=== PATIENT | female | born 1945 | race Caucasian/White ===

== ENCOUNTER 2016-08-20 13:28 | Inpatient (IN) | payer MEDICARE, OTHER ==
[~2016-08-20] VITALS: Ht 160 cm; Wt 72.7 kg
[~2016-08-20 13:28] MED LIST: APIX5TAB PO; ASPI-628 PO; ATOR80TA PO; CALC600T12 PO; CARV6.25 PO; CHOL200020 PO; DABI150C PO; DETROL LA4 M1 PO; FLUT16SP2 NS; HYDR1TAB69 PO; KEN25CR EXT; LYSI500T PO; MULT-1007 PO; NITR0.4T6 SL; NITR4.1S TL; OLME40TA3 PO; RIVA20TA PO
[2016-08-20 13:37] VITALS: BP 115/70; PULSE 78; RESP 18; O2SAT 99
--- NOTE | 2016-08-20 15:19 | ED.REPORT ---
HPI-General Illness Date of Service Aug 20, 2016 ED Provider: Tommy Huang MD The patient is a 70 year old female with history of atrial fibrillation, previous stroke on Pradaxa, coronary artery disease, hypertension, and hyperlipidemia, who presents to the emergency department complaining of generalized weakness. The patient has had a cough since March. She has been seen at the urgent care multiple times since onset. She has also experienced decreased appetite, significant weight loss, intermittent fever, lower extremity swelling, chest pain secondary to coughing, shortness of breath, and fatigue. She was seen in the walk in clinic a few weeks ago for the same and was discharged home with cough medication and Ventolin. Her symptoms initially improved but have worsened over the last few days. She was sent to the emergency department today from urgent care for further evaluation. Nursing Notes Stated Complaint: WEAKNESS/LOSS OF APPETITE/COUGH/SENT FROM Chief Complaint: General Complaint Nursing Notes Reviewed: Yes Allergies: Coded Allergies: No Known Allergies (Verified , 08/20/16) Scheduled Apixaban (Eliquis) 5 Mg Tablet 5 MG PO BID Aspirin (Aspir 81) 81 Mg Tablet.dr 81 MG PO DAILY Atorvastatin (Lipitor) 80 Mg Tablet 80 MG PO DAILY Carvedilol (Coreg) 6.25 Mg Tablet 9.4 MG PO BID 1.5 tabs bid Dabigatran Etexilate Mesylate (Pradaxa) 150 Mg Capsule 150 MG PO BID Fluticasone Propionate (Flonase Nasal) 16 Gm Constable.susp 2 SPRAYS NS BID Hydrocodone Bit/Acetaminophen (Hydrocodon-Acetaminophen 5-500) 1 Each Tablet 1- 2 EACH PO Q6 Lysine (l-Lysine) 500 Mg Tablet 500 MG PO BID Olmesartan (Benicar) 40 Mg Tablet 20 MG PO DAILY Triamcinolone Acet (Triamcinolone Acetonide Cream) 1 Applic/0.25 Gm Cr 1 APPLIC EXT BID Miscellaneous Medications Calcium Carbonate (Calcium) 600 Mg Tablet 1,200 MG PO Cholecalciferol (Vitamin D3) (Vitamin D-3) 2,000 Unit Capsule 2,000 UNIT PO Multivitamin (Multi-Vitamin Daily) 1 Each Tablet 1 EACH PO Nitroglycerin (Nitromist) 4.1 Gm Constable 4.1 GM TL Nitroglycerin SL (Nitroglycerin SL) 0.4 Mg Tab.subl 0.4 MG SL Rivaroxaban (Xarelto) 20 Mg Tablet 20 MG PO Tolterodine Tartrate ER (Detrol LA) 4 Mg Cap.sr.24h 4 MG PO General Time Seen by MD: 15:18 Chief Complaint Weakness Hx Obtained From: Patient Arrived By: Walk-in Sudden in Onset?: No Onset Occurred: 1 week ago Symptom Duration: Since onset Severity: Current: No pain currently Severity: Maximum: No pain Recent Healthcare: No recent hospitalization, Recent doctor visit Similar Sx Previous: Yes Past Medical History Past Medical History Notes: [employer]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 Past Medical History Atrial fibrillation Hypertension Hyperlipidemia Coronary artery disease Pt reports history of a stroke 2-3 years ago with no deficits Past Surgical History Cardiac catheterization without stenting Family History Noncontributory Smoking History Never Smoker Social History Other Social History: Good social support, , Local resident Ambulatory Status Independent Review of Systems +decreased appetite Full Review of Systems Constitutional: Reports: Fatigue, Fever (intermittent subjective fever), Weakness - generalized Respiratory: Reports: Non-productive cough, Shortness of breath Cardiovascular: Reports: Chest pain (secondary to coughing) Musculoskeletal: Reports: Extremity swelling Complete sys rev & neg: except as marked. Physical Exam Vital Signs Vital Signs Date Time Temp Pulse Resp B/P Pulse Ox O2 Delivery O2 Flow Rate FiO2 08/20/16 16:44 127/59 116/67 105/58 08/20/16 13:37 36.8 78 18 115/70 99 Room Air Initial VS: Reviewed ENT: Mucous membranes moist, Conjunctiva normal, No scleral icterus Neck: Supple, Non-tender, Full range of motion Abdomen / GI: Soft, Non-tender, No guarding, No rebound, No distention Lymphatic: No lymphadenopathy Extremities: Vascular intact, Neuro intact Skin: Warm, Dry, No cyanosis Neurologic: Alert, Oriented, Nonfocal Psychiatric: Mood/affect normal, Behavior normal, Normal thought content General/Constitutional: Awake, Alert, Cooperative Respiratory / Chest: Atraumatic, Breath sounds = bilat, No respiratory distress , No rales, No rhonchi, No retractions, No stridor, No chest tenderness, No chest wall deformity, No crepitus End-expiratory wheezing Cardiovascular: Heart rate NL, Heart sounds NL Heart Rate / Rhythm: Positive: Irreg irregular rhythm Trace lower extremity edema Interpretation & Diagnostics Lab Results Interpretation Result Diagram: 08/20/16 1506 08/20/16 1506 Test 08/20/16 15:05 08/20/16 15:06 08/20/16 16:30 Pro-B-Type Natriuretic Peptide 822.8pg/mL (0-301) White Blood Count 5.2th/mm3 (3.8-10.1) Red Blood Count 4.52mil/mm3 (3.90-5.20) Hemoglobin 13.1g/dL (12.0-15.6) Hematocrit 39.8% (35.0-46.0) Mean Corpuscular Volume 88.1fL (81-100) Mean Corpuscular Hemoglobin 29.0pg (27.0-35.0) Mean Corpuscular Hemoglobin Concent 32.9% (32.0-37.0) Red Cell Distribution Width 15.4% (12.3-15.4) Platelet Count 244bil/L (150-400) Neutrophils (%) (Auto) 38.3% (40-74) Lymphocytes (%) (Auto) 44.5% (14-46) Monocytes (%) (Auto) 15.4% (4-12) Eosinophils (%) (Auto) 0.6% (0-5) Basophils (%) (Auto) 0.6% (0-3) Sodium Level 136mEq/L (134-144) Potassium Level 3.6mEq/L (3.5-5.2) Chloride Level 96mEq/L (97-108) Carbon Dioxide Level 19mmol/L (18-29) Blood Urea Nitrogen 20mg/dL (8-27) Creatinine 0.86mg/dL (0.57-1.00) Estimat Glomerular Filtration Rate 94mL/min (>59) Glucose Level 85mg/dL (60-99) Calcium Level 9.1mg/dL (8.5-10.1) Magnesium Level 1.9mg/dL (1.6-2.6) Total Bilirubin 0.8mg/dL (0.0-1.2) Aspartate Amino Transf (AST/SGOT) 35U/L (0-50) Alanine Aminotransferase (ALT/SGPT) 18U/L (0-32) Alkaline Phosphatase 70U/L (25-165) Total Protein 6.9g/dL (6.4-8.4) Albumin 3.6g/dL (3.4-5.0) Lipase 19U/L (13-60) Urine Color Dark yellow (YELLOW) Urine Appearance Slightly cloudy Urine pH 5.0 (5.0-8.0) Urine Specific Spring 1.032 (1.003-1.035) Urine Protein 100mg/dL (NEG,TRACE) Urine Glucose (UA) Negativemg/dL (NEGATIVE) Urine Ketones >80mg/dL (NEGATIVE) Urine Occult Blood Negative (NEGATIVE) Urine Nitrite Negative (NEGATIVE) Urine Bilirubin Negative (NEGATIVE) Urine Urobilinogen Normalmg/dL (NORMAL) Urine Leukocyte Esterase Negative (NEGATIVE) Urine RBC 0-2/hpf (0-2) Urine WBC 0-5/hpf (0-5) Urine Epithelial Cells Many/hpf (NONE-MOD) Urine Crystals Oxalic acid crystals (NONE Urine Bacteria Few/hpf (NONE-FEW) Urine Hyaline Casts Occasional/lpf (NONE) Urine Granular Casts None seen (NONE SEEN) Urine Waxy Casts None seen (NONE SEEN) Urine Red Blood Cell Casts None seen (NONE SEEN) Urine White Blood Cell Casts None seen (NONE SEEN) Urine Mucus Present (None Seen) Urine Trichomonas None seen (NONE SEEN) Urine Yeast None (NONE SEEN) Urinalysis Comment None Urine Culture Reflexed Not indicated ECG Interpretation ECG Interpretation: Atrial fibrillation with a rate of 85 Time: 15:51 Interpreted by: ED physician X-Ray Chest Interpretation Chest Xray Interpretation: Normal AP chest. View: Portable, 1 view Interpretation / Wet Read by: Wet read ED physician Re-Eval/Medical Decision Source of Hx: Old records Time of Eval: 17:11 Re-Evaluation/Progress Note: Rechecked the patient. Discussed results, diagnosis, and options for disposition. The patient is agreeable to admission. All questions were addressed. Consultation : Referral / Consult Name: Loyda Amato MD Consulted With: Hospitalist Requested Call at: 17:14 Call Returned at: 17:56 Physical Fitness Teacher: Will see patient, Agrees with eval, Agrees with plan, Accepts admit Counseled Regarding: Diagnosis, Lab results, Need for admission Discharge & Departure Primary Impression: Congestive heart failure Congestive heart failure type: unspecified congestive heart failure type Congestive heart failure chronicity: unspecified congestive heart failure chronicity Qualified Code: I50.9 - Heart failure, unspecified Disposition: ADMITTED TO HOSPITAL Discharge Condition All VS Reviewed: Yes Condition: Stable Referrals: Palak Landa (PCP) Alexandria Dimas MD Attestation Portions of this note were transcribed by Roseann Carcamo. I, Dr. Huang personally performed the history, physical exam and medical decision-making; I reviewed and confirmed the accuracy of the information in the transcribed note. Signed by: Tayler Perze, 08/20/2016 at 1800. copies to: Palak Landa; Alexandria Dimas MD, Kirk H MD Aug 20, 2016 15:19 Roseann Carcamo Aug 20, 2016 15:26
[2016-08-20 15:24] LABS: BASOPHILS % (AUTO) 0.6 % (0-3); EOSINOPHILS % (AUTO) 0.6 % (0-5); MONOCYTES % (AUTO) 15.4 % (4-12); Mean Corpuscular Volume 88.1 fL (81-100); NEUTROPHILS % (AUTO) 38.3 % (40-74); Platelet Count 244 bil/L (150-400)
[2016-08-20 16:05] LABS: Magnesium 1.9 mg/dL (1.6-2.6)
[2016-08-20 16:44] VITALS: BP_SYST 105; BP_SYST 116; BP_SYST 127; BP_DIAS 58; BP_DIAS 59; BP_DIAS 67
[2016-08-20 17:16] LABS: APPEARANCE,URINE SLIGHTLY CLOUDY (CLEAR,HAZY); COLOR,URINE DARK YELLOW (YELLOW); OCCULT BLOOD,URINE NEGATIVE (NEGATIVE)
[2016-08-20 17:17] LABS: UROBILINOGEN,URINE NORMAL (NORMAL)
[2016-08-20 17:36] VITALS: BP 116/53; PULSE 82; RESP 21; O2SAT 98
--- NOTE | 2016-08-20 18:27 | NUR ---
Admission Pt arrived on [facility] to Rm [id number], No complains of increased pain, weakness or SOB, A/Ox3, IV SL, Oriented to call light, visiting hours and BR. Addendum: 08/20/16 at 1845 by SUNG PINA RN Pt has no IV access, sts was told in ED "She was not going to have to have an IV".
[2016-08-20] MEDS ORDERED: Alum-Mag Hydrox-Simeth 30 mL Suspension PO PRN (18:30)
[2016-08-20] MEDS ORDERED: Polyethylene Glycol (PEG) 17 Gm Powder PO PRN (18:30)
[2016-08-20] MEDS ORDERED: Ondansetron 2 mg/mL 2 mL Inj IVPUSH PRN (18:30)
[2016-08-20 18:41] VITALS: BP 128/88; PULSE 69; RESP 20; O2SAT 95
[2016-08-20 18:56] VITALS: PULSE 92
--- NOTE | 2016-08-20 19:26 | HP ---
[address] [address] HISTORY AND PHYSICAL PATIENT: MEGHANN ANGELA : 1945 MR#: [id number] ADMIT: 08/20/2016 JOB ID: [id number] PRIMARY CARE PROVIDER: To be Palak Landa. Has an appointment in the next week or two. VALET SERVICE ATTENDANT: Dr. Dimas. The patient admitted from ED, observational status, Blue Team. CHIEF COMPLAINT: Cough and congestion and lightheadedness for 10 days. HISTORY OF PRESENT ILLNESS: This is a 70-year-old female who presents to the ED because she has been sick for several days. She has had no energy. She has had a cough with clear sputum, a sore throat. She has had some nasal congestion. When she lies down, she coughs but denies any PND. She has been a little bit wheezy. Presents to the ED with this and ED physician asked me to admit patient because he is worried about heart failure and the patient is a little bit hypotensive and orthostatic. Patient has had a cough for several months since April, nonproductive. Patient went on an airplane trip to [place], spent about a week there, came back about 10 days ago with pretty significant edema. However, that has pretty much cleared up over the last eight days. She has not been eating or drinking too much. Two weeks ago, patient went to urgent care. They gave her some inhalers, cough suppressants. The cough suppressant helped a bit. The inhaler did not do much. Patient has no history of congestive heart failure but has a history of AFib. No diarrhea, no chest pain. No nausea, vomiting. COMPLETE REVIEW OF SYSTEMS: Obtained. All pertinent positive positives in HPI above. Rest review of systems is negative. PAST MEDICAL HISTORY: 1. AFib. Diagnosed 2004. 2. Stroke 2004. 3. Hypertension. 4. Carotid stenosis. 5. Urge incontinence. MEDICATIONS: 1. Aspirin 81 mg daily. 2. Benicar 20 mg daily. 3. Coreg 6.25 b.i.d. 4. Detrol LA 4 daily. 5. Fluticasone nasal spray. 6. L-lycine. 7. Lipitor 80 daily. 8. Multivitamins daily. 9. P.r.n. sublingual nitro. 10. Pradaxa 150 b.i.d. 11. Vitamin D3 2000 units daily. ALLERGIES: None known. SOCIAL HISTORY: Patient lives with her . Does not smoke. Consumes no alcohol. FAMILY HISTORY: Father of a myocardial infarction and her mother had diabetes and other members in her family had diabetes. PHYSICAL EXAMINATION: Afebrile, pulse 82, respiratory rate 21, O2 sats 98% on room air. Lying, patient's blood pressure was 127/59, dropped to 105/58. Standing, pulse went from 81 down to 74. Patient coughing a little bit. A little bit wheezy in the room. Skin is warm and dry. Eyes: PERRLA. EOMs intact. Mouth shows adequate hydration. No JVD. Cardiac is regular. Lungs have some scattered expiratory wheezes. No rales. Cardiac is regular. Soft systolic murmur. No gallop. Abdomen is soft, nonacute, benign. Lower extremities showed no pitting edema. Cranial nerves 2-12 are intact. No gross motor or sensory defects noted. DIAGNOSES: 1. Probable upper respiratory infection present on admission. Active. Will send a viral PCR. 2. Possible congestive heart failure, present on admission. Active. Patient will get an echocardiogram. While patient may have congestive heart failure, I think she is a bit on the dry side so obviously will not start diuretics at this time. Will be changing her HECTOR to an ARB due to cough. Depending on those results, make further management plans. 3. Possible mild dehydration present on admission. Active. NS at 100 cc an hour. 4. Possible pulmonary embolus, present on admission. Active. Patient had an airplane flight. Came back with edema. CTA will be obtained. That will also give us some information about her lung tissue, etc. Obviously, if positive, patient needs to be put on heparin and treated. However, seems unlikely in that she is on Pradaxa. 5. AFib, present on admission. Stable. Continue patient's Pradaxa, rate controlled with Coreg. 6. History of CVA. Present on admission. Stable. Continue Lipitor and Coreg. 7. Hypertension. Present on admission. Stable. Will switch patient's Benicar to Cozaar because patient has had a cough since April and that may be helpful. Other workup as above. 8. Urge incontinence. Continue Detrol. CODE STATUS: FULL CODE.
[2016-08-20] MEDS ORDERED: OLME40TA3 PO (19:34)
[2016-08-20] MEDS ORDERED: ASPI81TA3 PO (19:35)
[2016-08-20] MEDS ORDERED: CHOL10008 PO (19:37)
[2016-08-20] MEDS ORDERED: MULT1CAP33 PO (19:37)
--- NOTE | 2016-08-20 19:39 | NUR ---
med rec reviewed med rec with patient, family, and medication bottles.
--- NOTE | 2016-08-20 20:35 | NUR ---
LISE explained and signed, copy of LISE and Medicare self administered medication information given to pt.
[2016-08-20 20:44] VITALS: BP 120/71; PULSE 87; RESP 20; O2SAT 97
[2016-08-20] MEDS: 0.9% Sodium Chloride 1,000 ML IV SCH (20:52)
--- NOTE | 2016-08-20 21:17 | NUR ---
anxiety patient is very anxious about medical care explained all interventions. answered questions care ongoing.
[2016-08-20] MEDS: Dabigatran 150 mg Capsule PO SCH (21:18)
[2016-08-21] VITALS (7 sets, daily range): BP systolic 120–153; BP diastolic 52–88; PULSE 67–98; RESP 18–20; O2SAT 92–95
--- NOTE | 2016-08-21 00:04 | NUR ---
iv access for ct scan patient very anxious about iv starts. asked gabriel rn to assess iv access (antecubital required per ct scan) failed attempt x1. ct scan ordered routine per electoral officer left mssg with iv therapy for access start at 06am. explained to patient. care ongoing.
[2016-08-21] MEDS: 0.9% Sodium Chloride 1,000 ML IV SCH (05:39)
--- NOTE | 2016-08-21 06:00 | DRSVH ---
PROCEDURE: X-RAY CHEST ONE VIEW, PORTABLE ([id number]) INDICATIONS: cough TECHNIQUE: One view of the chest was acquired. COMPARISON: None. FINDINGS: Surgical changes and devices: None. Lungs and pleura: No pleural effusions or pneumothorax. Lungs are clear. Mediastinum: Mediastinal contours appear normal. Heart size is normal. Bones and chest wall: No suspicious bony lesions. Overlying soft tissues appear unremarkable. IMPRESSION: No acute abnormality. Dictated by: Justino Feldman M.D. on 08/20/2016 at 16:02 Approved by: Justino Feldman M.D. on 08/20/2016 at 16:03
[2016-08-21] MEDS: Tolterodine ER 4 mg ER24 Capsule PO SCH (08:33)
[2016-08-21] MEDS: Dabigatran 150 mg Capsule PO SCH ×2 (08:36→22:31)
--- NOTE | 2016-08-21 10:58 | DRSVH ---
PROCEDURE: CT ANGIO CHEST PULMONARY EMBOLISM ([id number]) INDICATIONS: sob edema cough TECHNIQUE: After the administration of intravenous contrast, 2 mm thick sections acquired from the pulmonary api erik to the posterior costophrenic angles. 3-dimensional maximum intensity projection (MIP) coronal a nd sagittal reformats were then acquired through the thorax. For radiation dose reduction, the follo wing was used: automated exposure control, adjustment of mA and/or kV according to patient size. COMPARISON: None. FINDINGS: Image quality: Excellent. Pulmonary arteries: Pulmonary arteries are normal in size, and demonstrate no intraluminal filling d efects to suggest central pulmonary embolism. Lungs and pleura: Lungs are clear. No pleural effusions or pneumothorax. Central and peripheral ai rways are patent. Mild increased pulmonary vascularity. Mediastinum: Heart size is minimally prominent with a minimal pericardial effusion. There are mildly enlarged mediastinal lymph nodes with a 14 mm anterior right paratracheal and 15 mm subcarinal lymph nodes identified. There are mildly enlarged hilar lymph nodes, measuring 14 mm in the left perihilar region. Thoracic aorta is normal in caliber and enhancement. Esophagus is normal in caliber, with m ild hiatal hernia. 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 Bones and chest wall: No suspicious bony lesions. Ribs and thoracic spine appear intact throughout. Thyroid gland is unremarkable. No axillary or supraclavicular adenopathy. Abdomen: Visualized upper abdominal solid organs appear normal in the early arterial phase of enhanc ement. IMPRESSION: 1. No evidence of pulmonary embolism. 2. Lungs are clear. 3. Mild cardiomegaly with trace pericardial effusion and increased pulmonary vascularity. Findings a re suggestive of CHF. 4. Mildly enlarged mediastinal and hilar lymph nodes. This is nonspecific. It could be related to in fection/inflammation. Dictated by: Lisa Weber M.D. on 08/21/2016 at 10:48 Approved by: Lisa Weber M.D. on 08/21/2016 at 10:57
[2016-08-21] MEDS ORDERED: MULT-1018 PO (11:34)
--- NOTE | 2016-08-21 14:07 | DRSVH ---
[facility] [address] [place] [address] Echocardiogram Report Name: MEGHANN ANGELA Study Date: 08/21/2016 Height: 63 in Hospital Exam Location: [facility] Weight: 163 lb Gender: Female BSA: 1.8 m2 : 1945 Age: 70 yrs BP: 153/88 mmHg Reason For Study: SOB, EDEMA Ordering Physician: HOSPITALIST ASHLEYHPerformed By: Fer Flores Referring Physician: Loyda DYER Interpretation Summary 1) Normal left ventricular thickness, size, wall motion, and systolic function (EF 55-60%). 2) Normal right ventricular size with borderline reduced systolic function. 3) No significant valvular disease. 4) Systolic pulmonary pressure estimated at 35mmHg. 5) Atrial fibrillation with controlled ventricular rate present during the study. 6) Compared to the Echo done 07/21/2012, pulmonary systolic pressure has decreased from about 50mmHg to 35mmHg on today's study. Procedure: A two-dimensional transthoracic echocardiogram with color flow and Doppler was performed. The study quality was technically good. Comparison is made with the echocardiogram of 07/21/12. The patient was in atrial fibrillation with controlled ventricular rate during the exam. Left Ventricle: The left ventricle is normal in size. There is normal left ventricular wall thickness. Left ventricular systolic function is normal without focal wall motion abnormalities. The ejection fraction is estimated to be 55-60%. Assessment of diastolic parameters indicates a relaxation abnormality of the left ventricle, consistent with normal filling pressures. Right Ventricle: The right ventricle is normal size. Right ventricular systolic function is borderline reduced. Atria: The left atrium is mildly dilated. The right atrium is mildly dilated. The interatrial septum is intact with no evidence for an atrial septal defect. Mitral Valve: The mitral valve is normal. There is mild mitral regurgitation. Aortic Valve: The aortic valve is normal in structure and function. There is no aortic valve stenosis. There is trace aortic regurgitation. Tricuspid Valve: The tricuspid valve is normal. There is mild tricuspid regurgitation. The right ventricular systolic pressure is estimated at 35 mmHg assuming a right atrial pressure of 3 mm Hg. Pulmonic Valve: The pulmonic valve leaflets are thin and pliable; valve motion is normal. There is a trace or physiologic amount of pulmonic regurgitation. Great Vessels: The aortic root is normal size. The dimensions of the ascending aorta are normal. The pulmonary artery is normal size. The IVC is of normal diameter and collapses greater than 50% with a sniff. This suggests a low right atrial pressure of 3 mm Hg. Pericardium/ Pleura There is no pericardial effusion. There is no pleural effusion. MMode/2D Measurements & Calculations LVIDd: 4.8 cm RA long axis LVOT diam: 2.0 cm LVIDs: 3.4 cm LA A2 area: 19.3 cm AoV Opening FS: 27.7 % LA A4 area: 20.8 cm RA area EPSS: 0.36 cm LA length (vol) Ao root diam IVSd: 1.1 cm : 19.9 cm LVPWd: 0.99 cm LA vol: 56.8 ml RA vol asc Aorta Diam LA vol index : 61.9 ml RA Ao Arch Diam (Prox : 34.9 mm2 Trans): 2.7 cm IVC diam: 1.9 cm LV selby. diameter/BSA LV sys. diameter/BSA RVD1 (basal) RVD2 (mid): 2.7 cm (cm/m^2): 2.7 (cm/m^2): 1.9 TAPSE: 1.3 cm Doppler Measurements & Calculations Ao V2 max MV E max dominik Med Peak E' Dominik TR max dominik : 165.9 cm/sec : 119.6 cm/sec : 282.9 cm/sec Ao max PG E/E' med: 15.9 TR max P.2 mmHg : 11.0 mmHg Lat Peak E' Dominik PA V2 max: 57.7 cm/sec Ao mean PG PA mean P.69 mmHg E/E' lat: 9.6 LVOT Max Dominik E/e' average : 98.7 cm/sec Pulm A Revs Dur MÓNICA(I,D): 2.0 cm sev ratio Ao V2 mean LV V1 max PG PA V2 mean MÓNICA indexed to BSA : 108.3 cm/sec : 38.9 cm/sec (cm^2/m^2): 1.1 Ao V2 VTI LV V1 VTI: 19.0 cmPA pr(Accel) : 26.1 mmHg MÓNICA(V,D): 1.8 cm2 Reading Physician:02:05 PM
--- NOTE | 2016-08-21 14:42 | NUR ---
Social Work-initial assessment: Data:See initial assessment. Pt is a 70 y/o female who was admitted on 08/20/16 for CHF per H&P. Pt's insurance is [employer] and PCP is Palak ZAYAS. EMR Reviewed. Pt's readmission score is 3-high risk. SW met with pt at bedside to discuss discharge planning, SW role explained. Pt is alert and oriented x3. Pt resides at home with spouse in a single level home with 3 steps to enter where pt remains independent with basic ADLs. Pt uses no DME and drives POV. Pt has no HH or SNF history. Pt states she has completed DPOA/ advanced directive and will provide a copy to the hospital when she returns home. 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 CT scan is pending. Pt's family to provide transport home at discharge. SW provided phone number and plan on white board in room. SW will continue to follow. Assessment:Pt who resides at home and is independent at baseline. Plan:Pt to likely discharge home via POV with no needs. SW will continue to follow. TORIN Cadena Addendum: 08/21/16 at 1445 by KANU JANG SS Amended: Links added.
--- NOTE | 2016-08-21 15:05 | NUR ---
Case Management: [facility] delivered and explained to patient. Signed original placed in chart. Copy left at bedside. Roxana Altman RN
--- NOTE | 2016-08-21 19:38 | NUR ---
HR Pt had 2 episodes of tachycardia. In AM when getting new IV access - HR went into 130-160's as pt was in pain and very nervous about needles. No other sx of distress, HR resolved back to normal. Later around 6pm Tele reported having another tachycardic event. Up to 140-170's. Pt asymptomatic, was up to bathroom. MD paged, called back, and new orders placed. NOC shift updated with status.
[2016-08-21] MEDS: Potassium Chloride 20 mEq SR Tablet PO SCH (19:51)
--- NOTE | 2016-08-21 23:46 | PCM.PNMED ---
Subjective Date of Service Aug 21, 2016 Subjective The patient is feeling better and is less short of breath with less cough. Exam Vital Signs Vital Sign - Last Date Time Temp Pulse Resp B/P Pulse Ox O2 Delivery O2 Flow Rate FiO2 08/21/16 22:33 37.1 71 18 135/52 94 Room Air Intake and Output 08/20/16 08/20/16 08/21/16 Cumulative From/Thru 15:00 23:00 07:00 08/20/16 13:37 - 08/21/16 06:49 Intake Total 977 ml 977 ml Output Total 1100 ml 1100 ml Balance -123 ml -123 ml Intake Oral 500 ml 500 ml IV Total 477 ml 477 ml Output Urine Total 1100 ml 1100 ml # Bowel Movements 0 0 Exam General: The patient is lying supine in bed in no apparent distress. HEENT: Head is atraumatic and normocephalic. Eyes: Pupils are equally round and reactive to light and accommodation. Extraocular muscles are intact. Sclera are white, anicteric. Subconjunctival mucosa is pink. Ears and nose are unremarkable. Oropharynx: There is no mucosal lesions, there is no thrush, there is no pharyngitis. Neck: Is supple, there are no nodes, or masses or tenderness. Chest: Is clear to auscultation and percussion. There are no rales, rhonchi, wheezes or rubs. Heart: Rate, rhythm is regular. There is a grade 1/6 systolic ejection murmur heard best at the left sternal border. Abdomen: Good bowel sounds are present. Abdomen is soft, nontender, no organomegaly or masses were appreciated. Extremities: Are symmetrical and well perfused. There is minimal edema, there is no cellulitis, no rash. Neurologic: There are no focal neurological deficits. Cranial nerves II through XII are intact. There are no sensory or motor deficits. Psychiatric: Patients mood is calm and shows no sign of agitation. Genital: Deferred Rectal: Deferred Lab and Diagnostics Result Diagram: 08/20/16 1506 08/20/16 1506 Microbiology INFLUENZA A PCR Final 08/21/16-14 Organism 1 INFLUENZA A H3 INFLUENZA A PCR DETECTED TIME CALLED: 812 DATE CALLED: 08/21/16 FLOOR/DOCTOR: NEWTON/KAHLIL Mireles CALLED BY: HORTENCIA X-Rays, CTs and MRIs PROCEDURE: CT ANGIO CHEST PULMONARY EMBOLISM ([id number]) INDICATIONS: sob edema cough TECHNIQUE: After the administration of intravenous contrast, 2 mm thick sections acquired from the pulmonary apices to the posterior costophrenic angles. 3-dimensional maximum intensity projection (MIP) coronal and sagittal reformats were then acquired through the thorax. For radiation dose reduction, the following was used: automated exposure control, adjustment of mA and/or kV according to patient size. COMPARISON: None. FINDINGS: Image quality: Excellent. Pulmonary arteries: Pulmonary arteries are normal in size, and demonstrate no intraluminal filling defects to suggest central pulmonary embolism. Lungs and pleura: Lungs are clear. No pleural effusions or pneumothorax. Central and peripheral airways are patent. Mild increased pulmonary vascularity. Mediastinum: Heart size is minimally prominent with a minimal pericardial effusion. There are mildly enlarged mediastinal lymph nodes with a 14 mm anterior right paratracheal and 15 mm subcarinal lymph nodes identified. There are mildly enlarged hilar lymph nodes, measuring 14 mm in the left perihilar region. Thoracic aorta is normal in caliber and enhancement. Esophagus is normal in caliber, with mild hiatal hernia. 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 Bones and chest wall: No suspicious bony lesions. Ribs and thoracic spine appear intact throughout. Thyroid gland is unremarkable. No axillary or supraclavicular adenopathy. Abdomen: Visualized upper abdominal solid organs appear normal in the early arterial phase of enhancement. IMPRESSION: 1. No evidence of pulmonary embolism. 2. Lungs are clear. 3. Mild cardiomegaly with trace pericardial effusion and increased pulmonary vascularity. Findings are suggestive of CHF. 4. Mildly enlarged mediastinal and hilar lymph nodes. This is nonspecific. It could be related to infection/inflammation. Dictated by: Lisa Weber M.D. on 08/21/2016 at 10:48 Approved by: Lisa Weber M.D. on 08/21/2016 at 10:57 PROCEDURE: X-RAY CHEST ONE VIEW, PORTABLE ([id number]) INDICATIONS: cough TECHNIQUE: One view of the chest was acquired. COMPARISON: None. FINDINGS: Surgical changes and devices: None. Lungs and pleura: No pleural effusions or pneumothorax. Lungs are clear. Mediastinum: Mediastinal contours appear normal. Heart size is normal. Bones and chest wall: No suspicious bony lesions. Overlying soft tissues appear unremarkable. IMPRESSION: No acute abnormality. Dictated by: Justino Feldman M.D. on 08/20/2016 at 16:02 Approved by: Justino Feldman M.D. on 08/20/2016 at 16:03 Cardiac Echo Impressions Echocardiogram Report Name: MEGHANN ANGELA Study Date: 08/21/2016 Height: 63 in Hospital Exam Location: [facility] [place] Weight: 163 lb Gender: Female BSA: 1.8 m2 : 1945 Age: 70 yrs BP: 153/88 mmHg Reason For Study: SOB, EDEMA Ordering Physician: HOSPITALIST ASHLEYerformed By: Fer Flores Referring Physician: Loyda DYER Interpretation Summary 1) Normal left ventricular thickness, size, wall motion, and systolic function (EF 55-60%). 2) Normal right ventricular size with borderline reduced systolic function. 3) No significant valvular disease. 4) Systolic pulmonary pressure estimated at 35mmHg. 5) Atrial fibrillation with controlled ventricular rate present during the study. 6) Compared to the Echo done 07/21/2012, pulmonary systolic pressure has decreased from about 50mmHg to 35mmHg on today's study. Assessment & Plan This is a 70-year-old female who presents to the ED because she has been sick for several days. She has had no energy. She has had a cough with clear sputum , a sore throat. She has had some nasal congestion. When she lies down, she coughs but denies any PND. She has been a little bit wheezy. Presents to the ED with this and ED physician asked the hospitalist service to admit this patient because he was worried about heart failure and the patient was a little bit hypotensive and orthostatic. The patient was therefore admitted to the hospital service. # Influenza A - Will start Tamiflu, dosing per pharmacy. - Isolation - Acute on chronic diastolic Congestive heart failure, present on admission. Active. - This was confirmed by CT scanning and BNP measurement and clinical presentation. - Lisinopril changed to losartan and will continue with losartan. - We will discontinue IV fluids at this time - As patient appears to have periodic runs of supraventricular tachycardia, with heart rate is up to 170, due to her atrial fibrillation with rapid ventricular response, we will increase her carvedilol to 12.5 mg by mouth twice a day - We will add Lasix - We will add potassium as needed - We will monitor fluids and electrolytes and replace as needed. # Mild dehydration present on admission. Active. NS at 100 cc an hour was started. - However, due to the congestive heart failure this is now been discontinued # AFib, with paroxysmal rapid ventricular response usually brought on by activity and/or stress. -We will continue rate control with the use of carvedilol. However we will double the dose to 12.5 mg by mouth twice a day and see how the patient tolerates it. - Continue patient's Pradaxa. # History of CVA. Present on admission. Stable. - Continue Lipitor and Coreg. - Continue Pradaxa # Hypertension. Present on admission. Improved - Benicar has been switched to Cozaar because patient has had a cough since April and that may be helpful. - Other workup as above. # Urge incontinence. - Continue Detrol. Disposition: The patient will be here another 24-48 hours for further evaluation and treatment of the above problems. Pain Evaluation: Adequate Pain Control VTE Prophylaxis: Other (The patient is on Pradaxa.) Resuscitation Status: CPR: Attempt Resuscitation Jose Alejandro Rojo MD Aug 21, 2016 23:46
[2016-08-22] VITALS (9 sets, daily range): BP systolic 105–151; BP diastolic 67–81; PULSE 64–95; RESP 18–20; O2SAT 92–97
[2016-08-22 06:18] LABS: BASOPHILS % (AUTO) 0.8 % (0-3); EOSINOPHILS % (AUTO) 1.1 % (0-5); MONOCYTES % (AUTO) 15.9 % (4-12); Mean Corpuscular Hemoglobin 28.5 pg (27.0-35.0); Mean Corpuscular Volume 86.7 fL (81-100); NEUTROPHILS % (AUTO) 26.7 % (40-74); Platelet Count 219 bil/L (150-400)
--- NOTE | 2016-08-22 06:22 | NUR ---
HR/respiratory Extra dose of Coreg given in the beginning of shift per order. Pt's HR is running around 80s, went up to 140s when ambulating to the BR but went back down to 80s when back in bed. denies any chest pain or discomfort. Pt reported breathing much better tonight. able to ambulate to the BR independently w/o dizziness or SOB. had some coughing fit. pt is able to sleep intermittently.
[2016-08-22] MEDS: Potassium Chloride 20 mEq SR Tablet PO SCH ×2 (08:18→17:53)
[2016-08-22] MEDS: Tolterodine ER 4 mg ER24 Capsule PO SCH (08:19)
[2016-08-22] MEDS: Dabigatran 150 mg Capsule PO SCH ×2 (12:18→20:03)
--- NOTE | 2016-08-22 22:46 | PCM.PNMED ---
Subjective Date of Service Aug 22, 2016 Subjective Patient had a heart rate of 170 yesterday afternoon and was asymptomatic during this episode. Another episode where her heart rate went to 150-160 and she was asymptomatic during this episode. Patient has no other new complaints and is beginning to feel little bit better. Her cough has improved but is still present. Patient has no palpitations. Patient has no chest pain. Exam Vital Signs Vital Sign - Last Date Time Temp Pulse Resp B/P Pulse Ox O2 Delivery O2 Flow Rate FiO2 08/22/16 20:15 37.2 64 20 119/73 94 Room Air Intake and Output 08/21/16 08/21/16 08/22/16 Cumulative From/Thru 15:00 23:00 07:00 08/20/16 13:37 - 08/22/16 05:13 Intake Total 850 ml 740 ml 200 ml 2767 ml Output Total 1200 ml 600 ml 2900 ml Balance 850 ml -460 ml -400 ml -133 ml Intake Oral 740 ml 200 ml 1440 ml IV Total 850 ml 1327 ml Output Urine Total 1200 ml 600 ml 2900 ml # Bowel Movements 1 0 1 Exam General: The patient is lying supine in bed in no apparent distress. HEENT: Head is atraumatic and normocephalic. Eyes: Pupils are equally round and reactive to light and accommodation. Extraocular muscles are intact. Sclera are white, anicteric. Subconjunctival mucosa is pink. Ears and nose are unremarkable. Oropharynx: There is no mucosal lesions, there is no thrush, there is no pharyngitis. Neck: Is supple, there are no nodes, or masses or tenderness. Chest: Is clearer to auscultation and percussion. There are no rales, rhonchi, wheezes or rubs. Heart: Rate, rhythm is regular. There is a grade 1/6 systolic ejection murmur heard best at the left sternal border. Abdomen: Good bowel sounds are present. Abdomen is soft, nontender, no organomegaly or masses were appreciated. Extremities: Are symmetrical and well perfused. There is minimal edema, there is no cellulitis, no rash. Neurologic: There are no focal neurological deficits. Cranial nerves II through XII are intact. There are no sensory or motor deficits. Psychiatric: Patients mood is calm and shows no sign of agitation. Genital: Deferred Rectal: Deferred Lab and Diagnostics Result Diagram: 08/22/16 0525 08/22/16 0525 Microbiology INFLUENZA A PCR Final 08/21/16-0814 Organism 1 INFLUENZA A H3 INFLUENZA A PCR DETECTED TIME CALLED: 812 DATE CALLED: 08/21/16 FLOOR/DOCTOR: NEWTON/KAHLIL Mireles CALLED BY: HORTENCIA X-Rays, CTs and MRIs PROCEDURE: CT ANGIO CHEST PULMONARY EMBOLISM ([id number]) INDICATIONS: sob edema cough TECHNIQUE: After the administration of intravenous contrast, 2 mm thick sections acquired from the pulmonary apices to the posterior costophrenic angles. 3-dimensional maximum intensity projection (MIP) coronal and sagittal reformats were then acquired through the thorax. For radiation dose reduction, the following was used: automated exposure control, adjustment of mA and/or kV according to patient size. COMPARISON: None. FINDINGS: Image quality: Excellent. Pulmonary arteries: Pulmonary arteries are normal in size, and demonstrate no intraluminal filling defects to suggest central pulmonary embolism. Lungs and pleura: Lungs are clear. No pleural effusions or pneumothorax. Central and peripheral airways are patent. Mild increased pulmonary vascularity. Mediastinum: Heart size is minimally prominent with a minimal pericardial effusion. There are mildly enlarged mediastinal lymph nodes with a 14 mm anterior right paratracheal and 15 mm subcarinal lymph nodes identified. There are mildly enlarged hilar lymph nodes, measuring 14 mm in the left perihilar region. Thoracic aorta is normal in caliber and enhancement. Esophagus is normal in caliber, with mild hiatal hernia. 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 Bones and chest wall: No suspicious bony lesions. Ribs and thoracic spine appear intact throughout. Thyroid gland is unremarkable. No axillary or supraclavicular adenopathy. Abdomen: Visualized upper abdominal solid organs appear normal in the early arterial phase of enhancement. IMPRESSION: 1. No evidence of pulmonary embolism. 2. Lungs are clear. 3. Mild cardiomegaly with trace pericardial effusion and increased pulmonary vascularity. Findings are suggestive of CHF. 4. Mildly enlarged mediastinal and hilar lymph nodes. This is nonspecific. It could be related to infection/inflammation. Dictated by: Lisa Weber M.D. on 08/21/2016 at 10:48 Approved by: Lisa Weber M.D. on 08/21/2016 at 10:57 PROCEDURE: X-RAY CHEST ONE VIEW, PORTABLE ([id number]) INDICATIONS: cough TECHNIQUE: One view of the chest was acquired. COMPARISON: None. FINDINGS: Surgical changes and devices: None. Lungs and pleura: No pleural effusions or pneumothorax. Lungs are clear. Mediastinum: Mediastinal contours appear normal. Heart size is normal. Bones and chest wall: No suspicious bony lesions. Overlying soft tissues appear unremarkable. IMPRESSION: No acute abnormality. Dictated by: Justino Feldman M.D. on 08/20/2016 at 16:02 Approved by: Justino Feldman M.D. on 08/20/2016 at 16:03 Cardiac Echo Impressions Echocardiogram Report Name: MEGHANN ANGELA Study Date: 08/21/2016 Height: 63 in Hospital Exam Location: [facility] Weight: 163 lb Gender: Female BSA: 1.8 m2 : 1945 Age: 70 yrs BP: 153/88 mmHg Reason For Study: SOB, EDEMA Ordering Physician: HOSPITALIST SVHPerformed By: Fer Flores Referring Physician: Loyda DYER Interpretation Summary 1) Normal left ventricular thickness, size, wall motion, and systolic function (EF 55-60%). 2) Normal right ventricular size with borderline reduced systolic function. 3) No significant valvular disease. 4) Systolic pulmonary pressure estimated at 35mmHg. 5) Atrial fibrillation with controlled ventricular rate present during the study. 6) Compared to the Echo done 07/21/2012, pulmonary systolic pressure has decreased from about 50mmHg to 35mmHg on today's study. Assessment & Plan This is a 70-year-old female who presents to the ED because she has been sick for several days. She has had no energy. She has had a cough with clear sputum , a sore throat. She has had some nasal congestion. When she lies down, she coughs but denies any PND. She has been a little bit wheezy. Presents to the ED with this and ED physician asked the hospitalist service to admit this patient because he was worried about heart failure and the patient was a little bit hypotensive and orthostatic. The patient was therefore admitted to the hospital service. # Influenza A, present at the time of admission. It appears to be improving - Will continue Tamiflu, dosing per pharmacy. - Isolation - Acute on chronic diastolic Congestive heart failure, present on admission. Active and improving.. - This was confirmed by CT scanning and BNP measurement and clinical presentation. - Lisinopril changed to losartan and will continue with losartan. - We discontinued IV fluids at this time - As patient appears to have periodic runs of supraventricular tachycardia, with heart rate is up to 170, due to her atrial fibrillation with rapid ventricular response, we have increased her carvedilol to 12.5 mg by mouth twice a day. Heart rate appears to be under better control. - We will add Lasix - We will add potassium as needed - We will monitor fluids and electrolytes and replace as needed. # Mild dehydration present on admission. Active. NS at 100 cc an hour was started. - However, due to the congestive heart failure this is now been discontinued # AFib, with paroxysmal rapid ventricular response usually brought on by activity and/or stress. -We will continue rate control with the use of carvedilol. However we have doubled the dose to 12.5 mg by mouth twice a day and see how the patient tolerates it. - Continue patient's Pradaxa. # History of CVA. Present on admission. Stable. - Continue Lipitor and Coreg. - Continue Pradaxa # Hypertension. Present on admission. Improved - Coreg dose has been doubled - Benicar has been switched to Cozaar because patient has had a cough since April and that may be helpful. - Other workup as above. # Urge incontinence. - Continue Detrol. Disposition: The patient will be here another 24-48 hours for further evaluation and treatment of the above problems. Pain Evaluation: Adequate Pain Control GI Prophylaxis: Not indicated VTE Prophylaxis: Other (The patient is on Pradaxa.) Resuscitation Status: CPR: Attempt Resuscitation Jose Alejandro Rojo MD Aug 22, 2016 22:45
[2016-08-23] VITALS (9 sets, daily range): BP systolic 105–124; BP diastolic 65–77; PULSE 69–100; RESP 18–20; O2SAT 93–97
--- NOTE | 2016-08-23 05:23 | NUR ---
HR Trends with Activity: An overview of the pt's telemetry during the night showed spikes in the HR up to the 140s. This morning, the pt was up the bathroom and coughing and her HR was noted to hit the 160s. Otherwise, pt's heart rate at rest has been in the 70s primarily. Addendum: 08/23/16 at 0535 by STEPHANIE OSEI RN Addendum: Rhythm: Afib
[2016-08-23 06:37] LABS: EOSINOPHILS % (AUTO) 0.8 % (0-5); MONOCYTES % (AUTO) 11.9 % (4-12); Mean Corpuscular Volume 87.9 fL (81-100); NEUTROPHILS % (AUTO) 27.7 % (40-74); Platelet Count 237 bil/L (150-400)
[2016-08-23] MEDS: Potassium Chloride 20 mEq SR Tablet PO SCH (08:08)
[2016-08-23] MEDS: Tolterodine ER 4 mg ER24 Capsule PO SCH (08:09)
[2016-08-23] MEDS: Dabigatran 150 mg Capsule PO SCH (08:10)
--- NOTE | 2016-08-23 11:38 | NUR ---
ABDOULAYE Signed at 1135AM
--- NOTE | 2016-08-23 12:58 | PCM.DIMED ---
Discharge Instructions Date of Service Aug 23, 2016 Dates of Hospitalization Aug 20, 2016 at 17:35 Discharge Diagnosis Discharge Diagnosis Influenza A and CHF Diet Heart Healthy Activity No restrictions (The patient may return to usual activities gradually as tolerated.) Call your provider Fever or Chills, Shortness of breath, Bleeding, Chest pain, Vomitting, Excessive diarrhea, Weakness (unilateral) Patient Instructions Follow-up Provider: Alexandria Dimas MD Follow-up with PCP in: 1 week (Patient to keep her scheduled appointment on Sunday, August 26, 2016) Provider: Palak Landa Follow-up in: 1 week (Patient to keep her appointment as scheduled.) Jose Alejandro Rojo MD Aug 23, 2016 12:58
[2016-08-23] MEDS ORDERED: FUR20 PO (13:03)
[2016-08-23] MEDS ORDERED: CARV6.252 PO (13:03)
[2016-08-23] MEDS ORDERED: POTA20TA16 PO (13:03)
[2016-08-23] MEDS ORDERED: SENN-133 PO (13:03)
[2016-08-23] MEDS ORDERED: OSEL30CA PO (13:03)
--- NOTE | 2016-08-23 13:31 | NUR ---
Social Work: Discharge Data: Pt is on day 3 of hospitalization. EMR reviewed, pt discussed in rounds. recommended HH for RN regarding pt's CHF. CONVERSION WORKER met with pt regarding HH, HH choice list provided. Pt declined HH at this time. No further d/c planning needs. CONVERSION WORKER will continue to follow if needs arise. Assessment: Pt who is independent at baseline. Plan: Pt will d/c home via POV with spouse. Pt declining HH at this time. No further d/c planning needs. CONVERSION WORKER will continue to follow if needs arise. TORIN Rudolph
--- NOTE | 2016-08-23 13:55 | NUR ---
Discharge Pt DCd home with at 1354. Ambulated out with primary RN and SRN. Pt denied pain. VSS. All personal belongings left with pt. Discharge information discussed with pt and . All questions answered. Addendum: 08/23/16 at 1415 by JOSELINE CHATMAN RN I agree with above SRNs note.
--- NOTE | 2016-08-24 00:51 | PCM.DC.MED ---
Discharge Summary Date of Service Aug 23, 2016 Dates of Hospitalization Date of Hospital Admission Aug 20, 2016 at 17:35 Date of Discharge: Aug 23, 2016 Providers: Admitting Physician: Loyda Amato MD Primary Care Physician: Palak Landa Attending Physician: Loyda Amato MD Diagnosis at Time of Discharge Diagnosis at Time of Discharge Influenza A and CHF Procedures XRay, CTs & MRIs PROCEDURE: CT ANGIO CHEST PULMONARY EMBOLISM ([id number]) INDICATIONS: sob edema cough TECHNIQUE: After the administration of intravenous contrast, 2 mm thick sections acquired from the pulmonary apices to the posterior costophrenic angles. 3-dimensional maximum intensity projection (MIP) coronal and sagittal reformats were then acquired through the thorax. For radiation dose reduction, the following was used: automated exposure control, adjustment of mA and/or kV according to patient size. COMPARISON: None. FINDINGS: Image quality: Excellent. Pulmonary arteries: Pulmonary arteries are normal in size, and demonstrate no intraluminal filling defects to suggest central pulmonary embolism. Lungs and pleura: Lungs are clear. No pleural effusions or pneumothorax. Central and peripheral airways are patent. Mild increased pulmonary vascularity. Mediastinum: Heart size is minimally prominent with a minimal pericardial effusion. There are mildly enlarged mediastinal lymph nodes with a 14 mm anterior right paratracheal and 15 mm subcarinal lymph nodes identified. There are mildly enlarged hilar lymph nodes, measuring 14 mm in the left perihilar region. Thoracic aorta is normal in caliber and enhancement. Esophagus is normal in caliber, with mild hiatal hernia. 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 Bones and chest wall: No suspicious bony lesions. Ribs and thoracic spine appear intact throughout. Thyroid gland is unremarkable. No axillary or supraclavicular adenopathy. Abdomen: Visualized upper abdominal solid organs appear normal in the early arterial phase of enhancement. IMPRESSION: 1. No evidence of pulmonary embolism. 2. Lungs are clear. 3. Mild cardiomegaly with trace pericardial effusion and increased pulmonary vascularity. Findings are suggestive of CHF. 4. Mildly enlarged mediastinal and hilar lymph nodes. This is nonspecific. It could be related to infection/inflammation. Dictated by: Lisa Weber M.D. on 08/21/2016 at 10:48 Approved by: Lisa Weber M.D. on 08/21/2016 at 10:57 PROCEDURE: X-RAY CHEST ONE VIEW, PORTABLE ([id number]) INDICATIONS: cough TECHNIQUE: One view of the chest was acquired. COMPARISON: None. FINDINGS: Surgical changes and devices: None. Lungs and pleura: No pleural effusions or pneumothorax. Lungs are clear. Mediastinum: Mediastinal contours appear normal. Heart size is normal. Bones and chest wall: No suspicious bony lesions. Overlying soft tissues appear unremarkable. IMPRESSION: No acute abnormality. Dictated by: Justino Feldman M.D. on 08/20/2016 at 16:02 Approved by: Justino Feldman M.D. on 08/20/2016 at 16:03 Cardiac Echo Impression Echocardiogram Report Name: MEGHANN ANGELA Study Date: 08/21/2016 Height: 63 in Hospital Exam Location: [facility] Weight: 163 lb Gender: Female BSA: 1.8 m2 : 1945 Age: 70 yrs BP: 153/88 mmHg Reason For Study: SOB, EDEMA Ordering Physician: HOSPITALIST ASHLEYHPerformed By: Fer Flores Referring Physician: Loyda AMATO Interpretation Summary 1) Normal left ventricular thickness, size, wall motion, and systolic function (EF 55-60%). 2) Normal right ventricular size with borderline reduced systolic function. 3) No significant valvular disease. 4) Systolic pulmonary pressure estimated at 35mmHg. 5) Atrial fibrillation with controlled ventricular rate present during the study. 6) Compared to the Echo done 07/21/2012, pulmonary systolic pressure has decreased from about 50mmHg to 35mmHg on today's study. Brief History The patient is a 70 year old female with history of atrial fibrillation, previous stroke on Pradaxa, coronary artery disease, hypertension, and hyperlipidemia, who presents to the emergency department complaining of generalized weakness. The patient has had a cough since March. She has been seen at the urgent care multiple times since onset. She has also experienced decreased appetite, significant weight loss, intermittent fever, lower extremity swelling, chest pain secondary to coughing, shortness of breath, and fatigue. She was seen in the walk in clinic a few weeks ago for the same and was discharged home with cough medication and Ventolin. Her symptoms initially improved but have worsened over the last few days. She was sent to the emergency department today from urgent care for further evaluation. The patient was admitted to the hospital service for further evaluation and treatment. Hospital Course This is a 70-year-old female who presents to the ED because she has been sick for several days. She has had no energy. She has had a cough with clear sputum , a sore throat. She has had some nasal congestion. When she lies down, she coughs but denies any PND. She has been a little bit wheezy. Presents to the ED with this and ED physician asked the hospitalist service to admit this patient because he was worried about heart failure and the patient was a little bit hypotensive and orthostatic. The patient was therefore admitted to the hospital service. # Influenza A, present at the time of admission. It appears to be improving - Will continue Tamiflu, dosing per pharmacy. - Isolation - Acute on chronic diastolic Congestive heart failure, present on admission. Active and improving.. - This was confirmed by CT scanning and BNP measurement and clinical presentation. - Lisinopril changed to losartan and will continue with losartan. - We discontinued IV fluids at this time - As patient appears to have periodic runs of supraventricular tachycardia, with heart rate is up to 170, due to her atrial fibrillation with rapid ventricular response, we have increased her carvedilol to 12.5 mg by mouth twice a day. Heart rate appears to be under better control. - We will add Lasix - We will add potassium as needed - We will monitor fluids and electrolytes and replace as needed. # Mild dehydration present on admission. Active. NS at 100 cc an hour was started. - However, due to the congestive heart failure this is now been discontinued # AFib, with paroxysmal rapid ventricular response usually brought on by activity and/or stress. -We will continue rate control with the use of carvedilol. However we have doubled the dose to 12.5 mg by mouth twice a day and see how the patient tolerates it. - Continue patient's Pradaxa. # History of CVA. Present on admission. Stable. - Continue Lipitor and Coreg. - Continue Pradaxa # Hypertension. Present on admission. Improved - Coreg dose has been doubled - Benicar has been switched to Cozaar because patient has had a cough since April and that may be helpful. - Other workup as above. # Urge incontinence. - Continue Detrol. Disposition: The patient will be discharged home today. Exam Vital Signs (Last) Date Time Temp Pulse Resp B/P Pulse Ox O2 Delivery O2 Flow Rate FiO2 08/23/16 12:38 100 08/23/16 11:43 36.5 18 105/71 93 Room Air Exam General: The patient is lying supine in bed in no apparent distress. HEENT: Head is atraumatic and normocephalic. Eyes: Pupils are equally round and reactive to light and accommodation. Extraocular muscles are intact. Sclera are white, anicteric. Subconjunctival mucosa is pink. Ears and nose are unremarkable. Oropharynx: There is no mucosal lesions, there is no thrush, there is no pharyngitis. Neck: Is supple, there are no nodes, or masses or tenderness. Chest: Is much clearer today to auscultation and percussion. There are no rales , rhonchi, wheezes or rubs. Heart: Rate, rhythm is regular. There is a grade 1/6 systolic ejection murmur heard best at the left sternal border. Abdomen: Good bowel sounds are present. Abdomen is soft, nontender, no organomegaly or masses were appreciated. Extremities: Are symmetrical and well perfused. There is minimal edema, there is no cellulitis, no rash. Neurologic: There are no focal neurological deficits. Cranial nerves II through XII are intact. There are no sensory or motor deficits. Psychiatric: Patients mood is calm and shows no sign of agitation. Genital: Deferred Rectal: Deferred Test 08/20/16 15:06 08/20/16 16:30 08/21/16 08:50 08/22/16 00:40 Lipase 19U/L (13-60) Urine Color Dark yellow (YELLOW) Urine Appearance Slightly cloudy Urine pH 5.0 (5.0-8.0) Urine Specific Wesley 1.032 (1.003-1.035) Urine Protein 100mg/dL (NEG,TRACE) Urine Glucose (UA) Negativemg/dL (NEGATIVE) Urine Ketones >80mg/dL (NEGATIVE) Urine Occult Blood Negative (NEGATIVE) Urine Nitrite Negative (NEGATIVE) Urine Bilirubin Negative (NEGATIVE) Urine Urobilinogen Normalmg/dL (NORMAL) Urine Leukocyte Esterase Negative (NEGATIVE) Urine RBC 0-2/hpf (0-2) Urine WBC 0-5/hpf (0-5) Urine Epithelial Cells Many/hpf (NONE-MOD) Urine Crystals Oxalic acid crystals (NONE Urine Bacteria Few/hpf (NONE-FEW) Urine Hyaline Casts Occasional/lpf (NONE) Urine Granular Casts None seen (NONE SEEN) Urine Waxy Casts None seen (NONE SEEN) Urine Red Blood Cell Casts None seen (NONE SEEN) Urine White Blood Cell Casts None seen (NONE SEEN) Urine Mucus Present (None Seen) Urine Trichomonas None seen (NONE SEEN) Urine Yeast None (NONE SEEN) Urinalysis Comment None Urine Culture Reflexed Not indicated Thyroid Stimulating Hormone (TSH) 2.310uIU/mL (0.450-4.500) Free Thyroxine 1.35ng/dL (0.82-1.77) Troponin T < 0.010ug/L (0.0-0.011) Test 08/23/16 05:50 White Blood Count 5.0th/mm3 (3.8-10.1) Red Blood Count 4.28mil/mm3 (3.90-5.20) Hemoglobin 12.4g/dL (12.0-15.6) Hematocrit 37.6% (35.0-46.0) Mean Corpuscular Volume 87.9fL (81-100) Mean Corpuscular Hemoglobin 29.0pg (27.0-35.0) Mean Corpuscular Hemoglobin Concent 33.0% (32.0-37.0) Red Cell Distribution Width 15.3% (12.3-15.4) Platelet Count 237bil/L (150-400) Neutrophils (%) (Auto) 27.7% (40-74) Lymphocytes (%) (Auto) 58.4% (14-46) Monocytes (%) (Auto) 11.9% (4-12) Eosinophils (%) (Auto) 0.8% (0-5) Basophils (%) (Auto) 1.0% (0-3) Sodium Level 141mEq/L (134-144) Potassium Level 4.1mEq/L (3.5-5.2) Chloride Level 105mEq/L (97-108) Carbon Dioxide Level 20mmol/L (18-29) Blood Urea Nitrogen 11mg/dL (8-27) Creatinine 0.60mg/dL (0.57-1.00) Estimat Glomerular Filtration Rate 142mL/min (>59) Glucose Level 118mg/dL (60-99) Calcium Level 8.7mg/dL (8.5-10.1) Magnesium Level 2.0mg/dL (1.6-2.6) Total Bilirubin 0.5mg/dL (0.0-1.2) Aspartate Amino Transf (AST/SGOT) 29U/L (0-50) Alanine Aminotransferase (ALT/SGPT) 14U/L (0-32) Alkaline Phosphatase 70U/L (25-165) Pro-B-Type Natriuretic Peptide 445.9pg/mL (0-301) Total Protein 5.7g/dL (6.4-8.4) Albumin 3.3g/dL (3.4-5.0) Microbiology Results INFLUENZA A PCR Final 08/21/16-813 Organism 1 INFLUENZA A H3 INFLUENZA A PCR DETECTED TIME CALLED: 812 DATE CALLED: 08/21/16 FLOOR/DOCTOR: [facility]/KAHLIL Mireles CALLED BY: KLD Discharge Medications Discharge Medications Aspirin Chew (Aspirin Chew) 81 Mg Chew 81 MG PO HS (Reported) Atorvastatin (Lipitor) 80 Mg Tablet 80 MG PO DAILY (Reported) Calcium Carbonate (Calcium) 600 Mg Tablet 600 MG PO BID (Reported) Carvedilol (Carvedilol) 6.25 Mg Tablet 12.5 MG PO BIDWM Prescribed by: LJ DE SANTIAGO MD Cholecalciferol (Vitamin D3) (Vitamin D3) 1,000 Unit Tab.chew 1,000 UNIT PO HS ( Reported) Dabigatran Etexilate Mesylate (Pradaxa) 150 Mg Capsule 150 MG PO BID (Reported) Furosemide (Furosemide) 20 Mg Tab 20 MG PO DAILY Prescribed by: LJ DE SANTIAGO MD Lysine (l-Lysine) 500 Mg Tablet 500 MG PO BID (Reported) Multivitamin (Multi Vitamin Daily) 1 Each Tablet 1 TABLET PO DAILY (Reported) Olmesartan (Benicar) 40 Mg Tablet 20 MG PO DAILY (Reported) Oseltamivir Phosphate (Tamiflu) 30 Mg Capsule 30 MG PO BID Prescribed by: LJ DE SANTIAGO MD Potassium Chloride (Potassium Chloride) 20 Meq Tab.er.prt 20 MEQ PO DAILY Prescribed by: LJ DE SANTIAGO MD Tolterodine Tartrate ER (Detrol LA) 4 Mg Cap.sr.24h 4 MG PO DAILY (Reported) As needed Nitroglycerin SL (Nitroglycerin SL) 0.4 Mg Tab.subl 0.4 MG SL prn PRN PRN chest pain (Reported) Sennosides (Senna) 8.6 Mg Tablet 17.2 MG PO BID PRN PRN For Constipation Prescribed by: LJ DE SANTIAGO MD Followup Plan Disposition: Patient is being discharged home with her . Discharge Diet: Heart Healthy Discharge Activity: No restrictions (The patient may return to usual activities gradually as tolerated.) Follow-up Provider: Alexandria Dimas MD Follow-up with PCP in: 1 week (Patient to keep her scheduled appointment on Sunday, August 26, 2016) Provider: Palak Landa Follow-up in: 1 week (Patient to keep her appointment as scheduled.) Time spent Time spent on discharging this patient was greater than 35 minutes over half of which was involved in counseling and coordination of care. copies to: Palak Landa; Alexandria Dimas MD, Christopher E MD Aug 24, 2016 00:51
== END 2016-08-23 13:51 | disposition home or self-care (01) | DRG 293 ==
LOC: SED 13:28 → OBSVTOIN 17:35 → MPC 17:35
PROVIDERS: ADMIT Hospitalist; ATTEND Hospitalist
DX: I50.33 Acute on chronic diastolic (congestive) heart failure (principal); J11.1 Influenza due to unidentified influenza virus with other respiratory manifestations; N39.41 Urge incontinence; I10 Essential (primary) hypertension; E78.5 Hyperlipidemia, unspecified; I25.10 Atherosclerotic heart disease of native coronary artery without angina pectoris; E86.0 Dehydration; I48.0 Paroxysmal atrial fibrillation; Z86.73 Personal history of transient ischemic attack (TIA), and cerebral infarction without residual deficits; Z79.82 Long term (current) use of aspirin; Z79.01 Long term (current) use of anticoagulants